=== PATIENT | female | born 1985 | race Caucasian/White ===

== ENCOUNTER → 2022-04-09 | Outpatient (CLI) | payer BC, SELFPAY ==
--- NOTE | 2022-04-09 15:27 | US_ITS ---
STUDY: ULTRASOUND OF THE FEMALE PELVIS - COMPLETE REASON FOR EXAM: Female, 36 years old. heavy bleeding and pelvic pain TECHNIQUE: Endovaginal. Transvaginal US was obtained to better visualized the ovaries. COMPARISON: None. FINDINGS: The uterus is anteverted and is in a midline position. The uterus measures 9.8x5.6 cm. There is a Nabothian cyst of the cervix. The endometrium measures 15 mm in thickness, and is hyperechoic. There is no demonstrated endometrial mass. There is no demonstrated myometrial mass. I.U.D. - The patient does not have an I.U.D. The right ovary is visualized. The right ovary measures 2.5x2 cm. There is no right ovarian cyst or ovarian mass. There is no visualized right adnexal mass or complex lesion. There is normal arterial and normal venous vascularity. The left ovary is visualized. The left ovary measures 4.1x3.3 cm. There is no left ovarian cyst or ovarian mass. There is no visualized left adnexal mass or complex lesion. There is normal arterial and normal venous vascularity. There is no fluid in the cul-de-sac. Bladder volume is 35cc. US/Transvaginal Non- IMPRESSION: There is a Nabothian cyst of the cervix. Electronically Signed: Cayetano Heath MD at 16:36 EDT ,
--- NOTE | 2022-04-09 15:27 | US_ITS ---
STUDY: ULTRASOUND OF THE FEMALE PELVIS - COMPLETE REASON FOR EXAM: Female, 36 years old. heavy bleeding and pelvic pain TECHNIQUE: Endovaginal. Transvaginal US was obtained to better visualized the ovaries. COMPARISON: None. FINDINGS: The uterus is anteverted and is in a midline position. The uterus measures 9.8x5.6 cm. There is a Nabothian cyst of the cervix. The endometrium measures 15 mm in thickness, and is hyperechoic. There is no demonstrated endometrial mass. There is no demonstrated myometrial mass. I.U.D. - The patient does not have an I.U.D. The right ovary is visualized. The right ovary measures 2.5x2 cm. There is no right ovarian cyst or ovarian mass. There is no visualized right adnexal mass or complex lesion. There is normal arterial and normal venous vascularity. The left ovary is visualized. The left ovary measures 4.1x3.3 cm. There is no left ovarian cyst or ovarian mass. There is no visualized left adnexal mass or complex lesion. There is normal arterial and normal venous vascularity. There is no fluid in the cul-de-sac. Bladder volume is 35cc. US/Pelvic (Non ) IMPRESSION: There is a Nabothian cyst of the cervix. Electronically Signed: Cayetano Heath MD at 16:36 EDT ,
== END | disposition home or self-care (01) ==
PROVIDERS: PCP Internal Medicine; Referring Provider Obstetrics & Gynecology; Visit Provider Obstetrics & Gynecology
DX: R10.2 Pelvic and perineal pain (principal)
CPT/HCPCS: 76830; 76856

== ENCOUNTER → 2024-06-25 | Outpatient (CLI) | payer OTHER, SELFPAY ==
[2024-07-01 13:08] LABS: HPV APTIMA, High Risk Negative (Negative)
== END | disposition home or self-care (01) ==
PROVIDERS: PCP Internal Medicine; Referring Provider Obstetrics & Gynecology; Visit Provider Obstetrics & Gynecology
DX: Z12.4 Encounter for screening for malignant neoplasm of cervix (principal)
CPT/HCPCS: 87624; 88175; G0145

== ENCOUNTER → 2024-10-14 | Outpatient (CLI) | payer OTHER, SELFPAY ==
--- NOTE | 2024-10-14 16:25 | US_ITS ---
PROCEDURE: ULTRASOUND OF THE FEMALE PELVIS - COMPLETE REASON FOR EXAM: Female, 39 years old. Menorrhagia TECHNIQUE: Transabdominal and Transvaginal TECHNICAL QUALITY: Adequate. COMPARISON: Pelvic Ultrasound dated April 09, 2022 FINDINGS: The uterus is anteverted and is in a midline position. The uterus measures 9.9 x 4.8 x 4.9 cm. There is no demonstrated myometrial mass. The endometrium measures 12 mm in thickness, and is hyperechoic. There is no demonstrated endometrial mass. Redemonstration of multiple small to large size simple nabothian cysts of the cervix. No demonstrated cervical mass. The right ovary is visualized. The right ovary measures 2.5 x 2.6 x 2.5 cm. There is no right ovarian cyst or ovarian mass. There is no visualized right adnexal mass or complex lesion. The left ovary is visualized. The left ovary measures 3.9 x 2.6 x 2.3 cm. There is no left ovarian cyst or ovarian mass. There is no visualized left adnexal mass or complex lesion. Normal color vascular flow and Doppler signal is demonstrated in both ovaries. There is no fluid in the cul-de-sac. US/Pelvic w/ Transvaginal IMPRESSION: 1. Negative female pelvis. Electronically Signed: Phuc Fonseca MD at 11:28 EST ,
== END | disposition home or self-care (01) ==
LOC: US 16:17
PROVIDERS: PCP Internal Medicine; Referring Provider Obstetrics & Gynecology; Visit Provider Obstetrics & Gynecology
DX: N92.0 Excessive and frequent menstruation with regular cycle (principal)
CPT/HCPCS: 76830; 76856

== ENCOUNTER → 2024-10-26 | Outpatient (CLI) | payer OTHER, SELFPAY ==
--- NOTE | 2024-10-26 13:30 | EMB_PTH ---
PATIENT: THERESA NEWBY LOC: [facility] U#:[id number] AGE/SX: 39/F ROOM: RE10/26/[address]: Dr. Joy Zapata DO : 1985 BED: DIS: 10/26/2024 SPEC #: [id number] RECD: 10/26/24 17:11 STATUS: SHAYNE JOSE #: [id number] DEEPIKA: 10/26/24 13:[address]: Joy Zapata DEPT: SURGICAL PATHOLOGY RECD BY: Clau Sapp ENTERED: 10/27/24 09:38 SP TYPE: ENDOM BX/C GORANHR DR: Dr. María Burdick DO Tissues: Endometrium, NOS Procedures: Surgery Specimen Level IV HEADER OPERATION: Endometrial biopsy PRE-OP DIAGNOSIS: Menorrhagia TISSUE SUBMITTED: Endometrial lining MICROSCOPIC DIAGNOSIS Endometrium, biopsy: Secretory endometrium. AM/mr 10/28/2024 MICROSCOPIC DESCRIPTION Slides are reviewed. GROSS DESCRIPTION Received is one container labeled with the patient's name and not further designated. The specimen consists of multiple irregular fragments of light pink-vivas soft tissue that in aggregate measure 1.5 x 1.0 x 0.2 cm. The specimen is totally submitted in its entirety in one cassette. 10/27/2024 TC:5 CPT:04556
== END | disposition home or self-care (01) ==
LOC: LABSPEC 16:35
PROVIDERS: PCP Internal Medicine; Referring Provider Obstetrics & Gynecology; Visit Provider Obstetrics & Gynecology
DX: N92.0 Excessive and frequent menstruation with regular cycle (principal)
CPT/HCPCS: 88305

== ENCOUNTER → 2025-06-02 | Outpatient (CLI) | payer OTHER, SELFPAY ==
[2025-06-02 16:53] LABS: Hematocrit 41.8 % (37-47); Hemoglobin 14.1 g/dL (12.0-15.0); Immature Granulocytes Count 0.020 X10^3/uL (0.0-0.0); Mean Corp Hgb Conc 33.7 g/dL (32-36); Mean Corpuscular Volume 94.4 fL (81-99); Mean Platelet Vol. 10.0 fl (6.2-12.0); NRBC Flagged by Analyzer 0 % (0-5); Platelet Count 352 K/mm3 (150-450); RBC Distribution Width CV 12.5 % (11.6-14.6); RBC Distribution Width SD 43.2 fl (35.1-43.9); Red Blood Count 4.43 M/mm3 (4.2-5.4); White Blood Count 8.5 K/mm3 (4.4-11.0)
[2025-06-02 17:41] LABS: AST(SGOT) 20 U/L (<=31); Alanine Aminotransfer ALT/SGPT 23 U/L (<=34); Albumin, Serum 4.3 g/dL (3.5-5.0); Alkaline Phosphatase 70 U/L (35-104); Anion Gap 11 (5-15); BUN 14 mg/dL (4-19); BUN/Creat Ratio 15.6 RATIO (10-20); Calcium,Total 9.2 mg/dL (7.6-11.0); Carbon Dioxide 23.1 mmol/L (21.0-32.0); Chloride 104 mmol/L (98-108); Cholesterol 209 mg/dL (<=200); Globulin 3.1 g/dL (2.2-4.2); Glucose 88 mg/dL (70-99); Low Density Lipoprotein Calc. 134 mg/dL; Potassium 4.3 mmol/L (3.3-5.1); Triglycerides 205 mg/dL; Very Low Density Lipoprotein 41 mg/dL (5-40); cholesterol:hdl ratio screen 6.11
[2025-06-02 17:44] LABS: Vitamin B12 351 pg/mL (180-914); Vitamin D,25 Hydroxy 35.0 ng/mL (30-100)
== END | disposition home or self-care (01) ==
PROVIDERS: PCP Internal Medicine; Visit Provider Nurse Practitioner Family
DX: Z13.29 Encounter for screening for other suspected endocrine disorder (principal); R53.83 Other fatigue; Z13.220 Encounter for screening for lipoid disorders
CPT/HCPCS: 36415; 80053; 80061; 82306; 82607; 84439; 84443; 85025

== ENCOUNTER → 2025-11-08 | Outpatient (CLI) | payer OTHER, SELFPAY ==
--- NOTE | 2025-11-08 15:20 | US_ITS ---
PROCEDURE: PELVIC W/ TRANSVAGINAL 11/08/2025 REASON FOR EXAM: AUB TECHNIQUE: Procedure Code: [id number] Modality: US Procedure: PELVIC W/ TRANSVAGINAL FINDINGS: Uterus measures 12.2 x 6.5 x 5.5 Cm. It is anteverted position. No uterine fibroids are noted. Endometrial stripe measures 15 mm. It is hyperechoic. Nabothian cysts are noted. Right ovary measures 3.4 x 2.5 x 2.1 Cm and left ovary measures 4 x 3.3 x 2.6 Cm. There is normal bilateral symmetrical blood flow within bilateral ovaries. Left ovarian follicle measuring 1.9 x 1.8 x 1.7 cm. No significant free fluid within the cul-de-sac. US/Pelvic w/ Transvaginal IMPRESSION: Nonspecific thickening of the endometrial stripe to 15mm. Left ovarian follicle. Otherwise unremarkable exam. Reading Location: [facility]
== END | disposition home or self-care (01) ==
PROVIDERS: PCP Internal Medicine; Referring Provider Obstetrics & Gynecology; Visit Provider Obstetrics & Gynecology
DX: N93.9 Abnormal uterine and vaginal bleeding, unspecified (principal)
CPT/HCPCS: 76830; 76856